=== PATIENT | female | born 1985 | race Caucasian/White ===

== ENCOUNTER 2019-03-28 15:37 | Emergency (ER) | payer OTHER ==
[~2019-03-28] VITALS: Ht 167.6 cm; Wt 69.6 kg
[~2019-03-28 15:37] MED LIST: AMOX1TAB10 PO; HYDR-4011 PO; NAPR-985 PO
[2019-03-28 15:44] VITALS: BP 141/83; PULSE 89; RESP 19; Ht 167.6 cm; Wt 69.6 kg
[2019-03-28] MEDS ORDERED: LIDOCAINE 1% (MPF) 5 ML VIAL INJ ONE (16:30)
[2019-03-28] MEDS ORDERED: CEFTRIAXONE 1 GM INJ IM ONE (16:30)
== END 2019-03-28 17:32 | disposition home or self-care (01) ==
LOC: FTE 15:37
DX: S02.622A Fracture of subcondylar process of left mandible, initial encounter for closed fracture (principal); K04.7 Periapical abscess without sinus; F17.210 Nicotine dependence, cigarettes, uncomplicated; W01.198A Fall on same level from slipping, tripping and stumbling with subsequent striking against other object, initial encounter; Y92.9 Unspecified place or not applicable
CPT/HCPCS: 70486; 81025; 96372; J0696; Z7502; Z7610